=== PATIENT | female | born 1995 | race Caucasian/White ===

== ENCOUNTER 2020-02-26 13:52 | Emergency (ER) | payer OTHER, SELFPAY ==
[2020-02-26 14:09] VITALS: BP 145/70; PULSE 112; RESP 20; TEMP 37; O2SAT 96
--- NOTE | 2020-02-26 14:11 | ED.URI ---
HPI - URI/Sore Throat General Chief Complaint: Upper Respiratory Infection Stated Complaint: cold symptoms Source: patient and RN notes reviewed Mode of arrival: ambulatory Limitations: no limitations History of Present Illness MD elicited complaint: sore throat, rhinorrhea and nasal congestion Onset (ago): day(s) (1) Consistency: constant Severity: moderate Able to tolerate fluids by mouth: Yes Exacerbating factors: nothing Relieving factors: nothing Related Data Home Medications Medication Instructions Recorded Confirmed albuterol sulfate [ProAir HFA] 2 puff INHALATION QID PRN 02/26/20 02/26/20 Allergies Allergy/AdvReac Type Severity Reaction Status Date / Time No Known Allergies Allergy Unverified 02/26/20 14:14 Review of Systems Review of Systems: All systems reviewed & are unremarkable except as noted in HPI and below Constitutional: Constitutional: Denies chills and Denies fever(s) Eyes: Eyes: Reports no additional eye complaints ENT: Reports system reviewed and no additional complaints, except as documented Cardiovascular: Cardiovascular: Reports no additional cardiovascular complaints Respiratory: Respiratory: Reports no additional respiratory complaints Gastrointestinal: Gastrointestinal: Reports no additional gastrointestinal complaints Genitourinary: Genitourinary: Reports no additional female genitourinary complaints Musculoskeletal: Musculoskeletal: Reports no additional musculoskeletal complaints Integumentary/Breasts: Skin/Breast: Reports system reviewed and no additional complaints, except as docu Neurologic: Reports system reviewed and no additional complaints, except as documented Psychiatric: Psychiatric: Reports no additional psychiatric complaints Endocrine: Endocrine: Reports no additional endocrine complaints Hematologic/Lymphatic: Hematologic/Lymphatic: Reports no additional hematologic/lymphatic complaints Allergic/Immunologic: Allergic/Immunologic: Reports no additional allergic/immunologic complaints PMFSH Past Medical History Medical History (Updated 02/26/20 @ 14:52 by Ruiz Deshpande MD) Asthma Surgical History Surgical History (Updated 02/26/20 @ 14:17 by Ruiz Deshpande MD) No pertinent past surgical history Social History Social History Gender identity (if verbalized by the patient): Female Exam Const: General: healthy appearing, no acute distress and alert Nutritional Appearance: well nourished Orientation/consciousness: patient oriented x3 Other: female nurse in room during examination. HENMT: Head: normal to inspection Ears: external ears normal, TM's normal bilaterally and EAC's normal General nose exam: Normal external nose present and Normal nares present Face and sinus: normal facial exam Mouth: Yes Normal oral and palatal mucosa present and Yes lip normal Throat: uvula midline and posterior oropharynx abnormal erythema; no exudates Eyes: Conjunctivae: conjunctivae normal Pupils: Equal, round and reactive pupils present EOM: EOMs intact bilaterally Resp: Effort & Inspection: normal respiratory effort Auscultation: clear to auscultation bilaterally Cardio: Rate: regular rate Rhythm: regular rhythm GI: GI Palp: Yes Soft to palpation and No Tenderness to palpation present (GI) Auscultation: normal bowel sounds Back/Spine/Pelvis: Cervical Spine: cervical ROM normal Thoracic/Lumbar Spine: thoraco-lumbar ROM normal Skin: General skin exam: normal color Rashes: no rashes Neuro: General: patient oriented x3, moves all extremities and no focal motor deficits Speech: normal speech Gait exam (Neuro): Normal gait present Extrem: General: normal to inspection and no clubbing, cyanosis or edema Psych: Appearance: grossly normal and well kempt Mental Status: mental status grossly normal Affect: normal affect Attitude: cooperative Thought content: Yes Normal thought content present Course Vital Signs Vital signs: Vital Sig
--- NOTE | 2020-02-26 14:19 | PC.NURSE ---
accompanied Dr Deshpande on assessment [facility]
[2020-02-26 14:59] VITALS: PULSE 110; RESP 20; O2SAT 98
== END 2020-02-26 15:01 | disposition home or self-care (01) ==
PROVIDERS: Emergency Provider Emergency Medicine
DX: J02.0 Streptococcal pharyngitis (principal)
CPT/HCPCS: 87880; 99283

== ENCOUNTER 2020-04-04 12:27 | Outpatient (CLI) | payer OTHER, SELFPAY ==
--- NOTE | ~2020-04-04 | US_ITS ---
EXAMINATION: US pelvic complete w TV DATE: 04/04/2020 13:03 INDICATION: IUD Comparison:No prior studies for comparison. TECHNIQUE: Multiple transabdominal and endovaginal sonographic images of the pelvis performed. FINDINGS: The uterus measures 9.4 x 2.9 x 4.1 cm. The endometrial complex measures 3 mm. The right ovary measures 6.2 x 4.1 x 5.3 cm and the left ovary measures 2.8 x 1.8 x 1.7 cm. There is a right ovarian cyst measuring 5.6 x 4 x 5 cm. IUD present in the endometrium. There are small follic les in each ovary. There is no free fluid in the pelvis. There are no abnormal masses seen on either side. IMPRESSION: 1. 5.6 cm right ovarian cyst. 2: IUD in expected position. Reviewed, dictated and finalized at location A.
== END 2020-04-04 12:28 | disposition home or self-care (01) ==
LOC: CHSIMG 12:29
PROVIDERS: PCP Family Medicine; Visit Provider Nurse Practitioner
DX: Z30.431 Encounter for routine checking of intrauterine contraceptive device (principal)
CPT/HCPCS: 76830; 76856

== ENCOUNTER 2020-05-23 12:29 | Outpatient (CLI) | payer OTHER, SELFPAY ==
--- NOTE | ~2020-05-23 | US_ITS ---
EXAMINATION: US pelvic complete w TV DATE: 05/23/2020 13:00 INDICATION: Follow-up right ovarian cyst. Comparison:Ultrasound dated 04/04/2020 TECHNIQUE: Multiple transabdominal and endovaginal sonographic images of the pelvis performed. FINDINGS: The uterus measures 8.3 x 3.4 x 5 cm. There is an IUD in expected position. The endometrial complex measures 4 mm. The right ovary measures 2.7 x 1.9 x 2.1 cm and the left ovary measures 2.3 x 1.6 x 1.4 cm. There is a 1.5 cm right ovarian cyst. There is no free fluid in the pelvis. There are no abnormal masses seen on either side. IMPRESSION: 1. Right ovarian cyst measuring 1.5 cm. Reviewed, dictated and finalized at location A. AL MECHANIC
== END 2020-05-23 12:30 | disposition home or self-care (01) ==
LOC: CHSIMG 12:31
PROVIDERS: Visit Provider Obstetrics & Gynecology Gynecology
DX: N83.201 Unspecified ovarian cyst, right side (principal)
CPT/HCPCS: 76830; 76856

== ENCOUNTER 2020-07-30 19:05 | Emergency (ER) | payer OTHER, SELFPAY ==
--- NOTE | ~2020-07-30 | XR_ITS ---
EXAMINATION: XR chest 2V DATE: 07/30/2020 20:50 INDICATION: Intermittent midsternal chest pressure. Shortness of breath. TECHNIQUE: Frontal and lateral views of the chest were obtained. COMPARISON: None. FINDINGS: The chest demonstrates clear lungs without pneumonia, pleural effusion, or pneumothorax. Th e heart size is normal. IMPRESSION: 1. No acute cardiopulmonary disease. Reviewed, dictated and finalized at location A. ENT SUCCESS COACH
[2020-07-30 19:10] VITALS: BP 122/79; PULSE 75; RESP 20; TEMP 36.6; O2SAT 99
--- NOTE | 2020-07-30 19:31 | ED.CHESTPAIN ---
HPI - Chest Pain General Chief Complaint: Shortness of Breath/Dyspnea Stated Complaint: chest pains Time Seen by Provider: 07/30/20 19:31 Source: patient Mode of arrival: ambulatory Limitations: no limitations History of Present Illness HPI narrative: 25-year-old woman with history of asthma comes in today complaining of 2 days of intermittent chest pain which is substernal and lasts up to a few hours at a time. She states she has also had progressively worse shortness of breath and an intermittent sore throat. She denies cough, fever, vomiting, diarrhea, abdominal pain, syncope, and dysuria. 2 family members at home and had mild upper respiratory symptoms the past few days. She has had the flu vaccine this season. MD complaint: chest pain Pertinent past history: asthma Onset (ago): day(s) (2) Timing of current episode: episodic Pain location: substernal Pain radiation: none Severity: moderate Quality: tightness Relieving factors: nothing Exacerbating factors: nothing Associated symptoms: dyspnea Treatment prior to arrival: none Risk Factors Coronary artery disease risk factors: none Thoracic aortic dissection risk factors: none Related Data On Oral Contraceptives: No ( Mirena) Allergies Allergy/AdvReac Type Severity Reaction Status Date / Time No Known Allergies Allergy Verified 03/14/20 10:35 Review of Systems Constitutional: Constitutional: Denies chills, Denies fever(s) and Denies weakness Eyes: Eyes: Denies change in vision and Denies photophobia ENT: Denies dysphagia, Denies nasal congestion and Reports sore throat Cardiovascular: Cardiovascular: Reports chest pain and Denies radiating jaw, neck or arm pain Respiratory: Respiratory: Denies cough and Reports dyspnea Gastrointestinal: Gastrointestinal: Denies abdominal pain, Denies diarrhea, Denies nausea and Denies vomiting Genitourinary: Genitourinary: Denies nocturia and Denies dysuria Musculoskeletal: Musculoskeletal: Denies arthralgias and Denies joint swelling Integumentary/Breasts: Skin/Breast: Denies pruritus, Denies erythema and Denies rash Neurologic: Denies vertigo, Denies dizziness and Denies syncope Endocrine: Endocrine: Denies polydipsia and Denies polyuria Hematologic/Lymphatic: Hematologic/Lymphatic: Denies easy bleeding and Denies easy bruising Allergic/Immunologic: Allergic/Immunologic: Denies lip swelling and Denies throat swelling PMF Past Medical History Medical History Asthma Surgical History Surgical History No pertinent past surgical history Social History Social History Smoking status: Never smoker Second hand tobacco smoke exposure: Yes (spouse) Alcohol intake: never Substance use: never Substance use type: does not use Gender identity (if verbalized by the patient): Female Exam Const: General: healthy appearing, no acute distress and alert Orientation/consciousness: patient oriented x3 Limitations: no limitations HENMT: Head: normal to inspection Ears: external ears normal, TM's normal bilaterally and EAC's normal General nose exam: Normal nares present Face and sinus: normal facial exam Mouth: Yes moist mucous membranes Throat: posterior oropharynx normal Eyes: Conjunctivae: conjunctivae normal Pupils: Equal, round and reactive pupils present EOM: EOMs intact bilaterally Resp: Effort & Inspection: normal respiratory effort and not labored Auscultation: clear to auscultation bilaterally, no rales, no rhonchi and no wheezes Cardio: Rate: regular rate Rhythm: regular rhythm Heart sounds: no murmurs Skin: General skin exam: normal color, no jaundice and no pallor Rashes: no rashes Neuro: General: patient oriented x3, moves all extremities, No no focal motor deficits and No CN's II-XI intact bilaterally Speech: No normal s
[2020-07-30 19:48] VITALS: PULSE 85
[2020-07-30 20:05] LABS: Influenza Control Valid (Valid); SARS-CoV-2 Ag Negative (Negative)
--- NOTE | 2020-07-30 20:06 | ECG_ITS ---
Measurements Intervals [place] Rate: 74 P: 62 [place]: 140 QRS: 52 QRSD: 114 T: 32 QT: 391 QTc: 436 Interpretive Statements SINUS RHYTHM WITH SINUS ARRHYTHMIA INCOMPLETE RIGHT BUNDLE BRANCH BLOCK BORDERLINE ECG Electronically Signed On 07-31-2020 6:49:44 RELATIONSHIP COUNSELOR by Dillon Schreiber D.O.
[2020-07-30] MEDS: IPRATROPIUM 0.5 MG/ALBUTEROL SULFATE 2.5 MG AMPUL.NEB 3 ML INHALATION (20:14)
[2020-07-30 20:15] VITALS: PULSE 84; RESP 14; O2SAT 100
[2020-07-30 20:20] VITALS: PULSE 101; RESP 16; O2SAT 100
[2020-07-30] MEDS: predniSONE 20 MG TABLET 60 MG PO (21:13)
[2020-07-30 21:20] VITALS: BP 110/74; PULSE 82; RESP 20; TEMP 36.9; O2SAT 100
== END 2020-07-30 21:23 | disposition home or self-care (01) ==
PROVIDERS: Emergency Provider Emergency Medicine
DX: J45.901 Unspecified asthma with (acute) exacerbation (principal); R07.9 Chest pain, unspecified; Z20.822 Contact with and (suspected) exposure to COVID-19
CPT/HCPCS: 36415; 71046; 87426; 87804; 93005; 94640; 99283; 99284; C9803; J7512

== ENCOUNTER 2020-08-05 15:04 | Emergency (ER) | payer OTHER, SELFPAY ==
--- NOTE | ~2020-08-05 | XR_ITS ---
EXAMINATION: XR chest 2V DATE: 08/05/2020 16:56 INDICATION: Midsternal chest pain TECHNIQUE: PA and lateral views of the chest are obtained. COMPARISON: 07/30/2020 FINDINGS: The lungs are free of acute opacities. There is no pleural effusion or pneumothorax. The ca rdiomediastinal silhouette is normal. There is thoracolumbar levoscoliosis. IMPRESSION: 1. No acute cardiopulmonary abnormality. Reviewed, dictated and finalized at location A. ORT CONTROL OPERATOR
[2020-08-05 15:15] VITALS: BP 112/67; PULSE 68; RESP 20; TEMP 36.4; O2SAT 98
--- NOTE | 2020-08-05 15:38 | ED.CHESTPAIN ---
HPI - Chest Pain General Chief Complaint: Chest Pain Stated Complaint: chest pain Time Seen by Provider: 08/05/20 15:42 Source: patient Mode of arrival: ambulatory Limitations: no limitations History of Present Illness HPI narrative: 25-year-old woman with history of asthma comes in today complaining of sharp chest pain which has been present for the last day or so. She states that she thought she was having a panic attack. States the pain was constant, substernal, and not associated with any other symptoms such as shortness of breath, nausea, sweating, lightheadedness. She states that she has had a cough recently but has had no wheezing, sore throat, fever, or ageusia. She states her has had bronchitis recently. She has the Mirena for for control. MD complaint: chest pain Pertinent past history: asthma Onset (ago): day(s) (1-2) Prior episodes: No Onset: during rest Pain location: substernal Pain radiation: none Severity: moderate Quality: sharp Relieving factors: nothing Exacerbating factors: nothing Treatment prior to arrival: other (NSAID) Risk Factors Coronary artery disease risk factors: none Related Data On Oral Contraceptives: No Allergies Allergy/AdvReac Type Severity Reaction Status Date / Time No Known Allergies Allergy Verified 03/14/20 10:35 Review of Systems Constitutional: Constitutional: Denies body ache(s) and Denies chills Comments: No fever. Eyes: Eyes: Denies change in vision, Denies loss of vision and Denies photophobia ENT: Denies nasal congestion, Denies nasal discharge and Denies sore throat Cardiovascular: Cardiovascular: Reports as per HPI Respiratory: Respiratory: Denies chest congestion, Denies cough, Denies hemoptysis, Denies pain on inspiration, Denies dyspnea, Denies stridor and Denies wheezing Gastrointestinal: Gastrointestinal: Denies abdominal pain, Denies diarrhea, Denies nausea and Denies vomiting Musculoskeletal: Musculoskeletal: Denies back pain, Denies arthralgias and Denies joint swelling Comments: No calf pain or swelling. Integumentary/Breasts: Skin/Breast: Denies pruritus, Denies erythema and Denies rash Neurologic: Denies vertigo, Denies dizziness, Denies syncope and Reports headache(s) Psychiatric: Psychiatric: Reports anxiety Hematologic/Lymphatic: Hematologic/Lymphatic: Denies easy bleeding and Denies easy bruising Allergic/Immunologic: Allergic/Immunologic: Denies urticaria, Denies lip swelling and Denies throat swelling PMFSH Past Medical History Medical History Asthma Surgical History Surgical History No pertinent past surgical history Social History Social History Smoking status: Never smoker Second hand tobacco smoke exposure: Yes (spouse) Alcohol intake: never Substance use: never Substance use type: does not use Gender identity (if verbalized by the patient): Female Exam Const: General: cooperative, healthy appearing, well developed, alert, awake, Physically active and acute distress mild Nutritional Appearance: average body habitus Orientation/consciousness: patient oriented x3 Limitations: no limitations HENMT: Head: normal to inspection and atraumatic Ears: external ears normal, TM's normal bilaterally and EAC's normal Face and sinus: normal facial exam Mouth: Yes Normal oral and palatal mucosa present Throat: posterior oropharynx normal Eyes: Pupils: Equal, round and reactive pupils present EOM: EOMs intact bilaterally Resp: Effort & Inspection: normal respiratory effort, able to speak in complete sentences, not labored and no respiratory distress Auscultation: clear to auscultation bilaterally, no rales, no rhonchi and no wheezes Cardio: Rate: regular rate Rhythm: regular rhythm Heart sounds: no murmurs GI: Auscultation: normal bowel
--- NOTE | 2020-08-05 15:50 | ECG_ITS ---
Measurements Intervals [place] Rate: 66 P: 58 HI: 147 QRS: 68 QRSD: 97 T: 40 QT: 388 QTc: 406 Interpretive Statements SINUS RHYTHM WITH SINUS ARRHYTHMIA INCOMPLETE RIGHT BUNDLE BRANCH BLOCK BASELINE WANDER- I, II, III BORDERLINE ECG Electronically Signed On 08-05-2020 16:07:46 ELEMENTARY SCHOOL READING TEACHER by Dillon Schreiber D.O.
[2020-08-05] MEDS: MAG HYDROX/ALUMINUM HYD/SIMETH 30 ML, PHENobarb/HYOSCY/ATROPINE/SCOP 32.4 MG, LIDOCAINE... PO (16:03)
[2020-08-05 16:09] LABS: Basophils Absolute Auto 0.05 K/mm3 (0.00-0.10); Basophils Percent Auto 0.4 % (0.0-1.0); Eosinophils Absolute Auto 0.34 K/mm3 (0.02-0.50); Hematocrit 35.9 % (35.0-49.0); Hemoglobin 11.9 g/dL (12.0-15.0); Immature Granulocyte Absolute 0.03 K/mm3 (0.00-0.00); Immature Granulocyte Percent A 0.3 % (0.0-0.0); Lymphocytes Absolute Auto 4.83 K/mm3 (1.10-4.50); Mean Corpuscular HGB Conc 33.1 g/dL (32.0-36.0); Mean Corpuscular Hemoglobin 30.5 pg (27.0-31.0); Mean Corpuscular Volume 92.1 fL (78.0-102.0); Monocytes Absolute Auto 0.64 K/mm3 (0.10-0.90); Monocytes Percent Auto 5.6 % (2.0-11.0); Neutrophils Absolute Auto 5.6 K/mm3 (1.7-7.2); Neutrophils Percent Auto 48.7 % (50.0-70.0); Platelet Count Result 216 K/mm3 (150-420); Red Cell Distribution Width 11.9 % (11.6-14.4); White Blood Count 11.5 K/mm3 (4.8-10.8)
[2020-08-05 16:26] LABS: Alanine Aminotransferase 38 U/L (14-59); Albumin Level 3.7 g/dL (3.4-5.0); Alkaline Phosphatase 83 U/L (46-116); Anion Gap 9 mmol/L (8-16); Aspartate Amino Transferase 16 U/L (15-37); Bilirubin,Total 0.3 mg/dL (0.00-1.00); Blood Urea Nitrogen 18 mg/dL (7-18); Calcium 9.1 mg/dL (8.5-10.1); Carbon Dioxide 27 mmol/L (21-32); Chloride 103 mmol/L (98-108); D Dimer 0.44 mg/L (0.19-0.50); Estimated Glomerular Filt Rate > 60; Glucose 80 mg/dL (70-99); INR 1.1; Osmolality Calculated 288 mOsm/kg (285-295); Partial Thromboplastin Time 26.4 SEC (23.90-30.70); Potassium 3.2 mmol/L (3.5-5.1); Prothrombin Time 11.3 Seconds (9.50-12.10); Sodium 139 mmol/L (136-145); Total Protein 7.1 g/dL (6.4-8.2)
[2020-08-05 16:43] LABS: Troponin I < 4.0 ng/L (0.00-60.4)
[2020-08-05 17:05] LABS: Pregnancy On Board Control Positive; Urine Pregnancy Test Negative
[2020-08-05 17:34] LABS: Amphetamine Screen Urine Negative (Negative); Barbiturate Screen Urine Negative (Negative); Benzodiazepines Screen Urine Negative (Negative); Cannabinoid Screen Urine Negative (Negative); Cocaine Screen Urine Negative (Negative); Methadone Screen Urine Negative (Negative); Opiate Screen Urine Negative (Negative); Phencyclidine Screen Urine Negative (Negative)
[2020-08-05 17:38] VITALS: BP 111/66
[2020-08-06 00:55] LABS: Glucose Point of Care 81 (65-105)
== END 2020-08-05 17:40 | disposition home or self-care (01) ==
PROVIDERS: Emergency Provider Emergency Medicine; PCP Family Medicine
DX: R07.89 Other chest pain (principal)
CPT/HCPCS: 36415; 71046; 80053; 80307; 81025; 82948; 84484; 85025; 85380; 85610; 85730; 93005; 99284; A9270

== ENCOUNTER 2020-12-03 13:50 | Outpatient (CLI) | payer OTHER, SELFPAY ==
--- NOTE | ~2020-12-03 | XR_ITS ---
EXAMINATION: XR chest 2V DATE: 12/03/2020 14:16 INDICATION: Mid chest pain. TECHNIQUE: PA and lateral views of the chest were obtained. COMPARISON: Chest radiograph dated 08/05/2020 FINDINGS: The lungs remain clear with no focal airspace opacities, pulmonary edema, pleural effusion or pneumot horax. The cardiomediastinal silhouette is normal. 12 degree thoracolumbar levoscoliosis. Chronic min imal anterior wedging of a few mid and lower thoracic vertebral bodies. IMPRESSION: 1. No acute cardiopulmonary disease. Reviewed, dictated and finalized at location A.
--- NOTE | 2020-12-03 13:52 | ECG_ITS ---
Measurements Intervals [place] Rate: 75 P: 62 ID: 140 QRS: 72 QRSD: 110 T: 58 QT: 381 QTc: 426 Interpretive Statements SINUS RHYTHM INCOMPLETE RIGHT BUNDLE BRANCH BLOCK BASELINE ARTIFACT- II, III, AVF BORDERLINE ECG Electronically Signed On 12-03-2020 14:37:16 CDT by Dillon Schreiber D.O.
== END 2020-12-03 13:51 | disposition home or self-care (01) ==
PROVIDERS: PCP Family Medicine; Visit Provider Family Medicine
DX: R07.89 Other chest pain (principal)
CPT/HCPCS: 71046; 93005

== ENCOUNTER 2021-08-18 19:31 | Emergency (ER) | payer OTHER, SELFPAY ==
--- NOTE | ~2021-08-18 | XR_ITS ---
XR foot LT 2V DATE: 08/18/2021 20:04 INDICATION: Lateral ankle and foot pain after stepping into TECHNIQUE: AP and lateral views COMPARISON: None FINDINGS: No fracture or dislocation, periosteal reaction or bone destruction. Joint spaces are prese rved. No erosive changes. IMPRESSION: Negative Reviewed, dictated and finalized at location A. IMPRESSION: Negative
--- NOTE | ~2021-08-18 | XR_ITS ---
XR ankle LT min 3V DATE: 08/18/2021 20:04 INDICATION: Stepped into a hole today. Lateral ankle and foot pain. TECHNIQUE: 4 views COMPARISON: None FINDINGS: No fracture or dislocation of the ankle or disruption of the ankle mortise. No periosteal r eaction or bone destruction. IMPRESSION: Negative Reviewed, dictated and finalized at location A. IMPRESSION: Negative
[2021-08-18 19:50] VITALS: BP 119/85; PULSE 85; RESP 16; TEMP 36.5; O2SAT 100
--- NOTE | 2021-08-18 20:22 | ED.LOWEXIN ---
HPI - Extremity Injury (Lower) General Chief Complaint: Extremity Injury, Lower Stated Complaint: L foot injury Time Seen by Provider: 08/18/21 19:33 Source: patient and RN notes reviewed Mode of arrival: ambulatory Limitations: no limitations History of Present Illness complaint: ankle injury Onset (ago): day(s) (1) Type of Injury: inversion Place: street/outdoors Severity: moderate Severity scale (1-10): 6 Relieving factors: NSAID Exacerbating factors: weight bearing and movement Associated symptoms: snap/pop sensation Related Data Allergies Allergy/AdvReac Type Severity Reaction Status Date / Time No Known Allergies Allergy Verified 08/18/21 19:48 Review of Systems Review of Systems: All systems reviewed & are unremarkable except as noted in HPI and below PMFSH Past Medical History Medical History Abnormal electrocardiogram [ECG] [EKG] Ankle sprain Anxiety disorder, unspecified Asthma Hypokalemia Other chest pain Surgical History Surgical History No pertinent past surgical history Social History Social History Smoking status: Never smoker Second hand tobacco smoke exposure: Yes (spouse) Alcohol intake: never Substance use: never Substance use type: does not use Gender identity (if verbalized by the patient): Female Exam Const: General: no acute distress Nutritional Appearance: well nourished Orientation/consciousness: patient oriented x3 Limitations: no limitations HENMT: Head: normal to inspection Ears: external ears normal, TM's normal bilaterally and EAC's normal General nose exam: Normal external nose present and Normal nares present Face and sinus: normal facial exam and sinuses nontender Eyes: General: appearance normal, both eyes and all related structures Visual Valdez: normal visual valdez by confrontation Conjunctivae: conjunctivae normal Pupils: Equal, round and reactive pupils present EOM: EOMs intact bilaterally Neck: Neck: normal visual inspection Chest: Chest palpation & inspection: normal inspection of the chest Resp: Effort & Inspection: normal respiratory effort Auscultation: clear to auscultation bilaterally Cardio: Rate: regular rate Rhythm: regular rhythm GI: GI Palp: Yes Soft to palpation and No Tenderness to palpation present (GI) Auscultation: normal bowel sounds : General: Yes bladder normal to palpation and Yes no CVA tenderness Back/Spine/Pelvis: Back: no CVA tenderness Skin: General skin exam: normal color Neuro: General: patient oriented x3, moves all extremities, no meningeal signs, no focal motor deficits and CN's II-XI intact bilaterally Extrem: General: no pedal edema Other: minimally swollen lateral left ankle. no acute redness or deformity. Psych: Appearance: grossly normal and well kempt Mental Status: mental status grossly normal Affect: normal affect Attitude: cooperative Thought content: Yes Normal thought content present Course Course Emergency Course: Pt was stable in the ED. less painful Reevaluation(s) Date: 08/18/21 Time: 19:48 Vital Signs Vital signs: Vital Signs Temperature 36.5 C 08/18/21 19:50 Pulse Rate 85 08/18/21 19:50 Respiratory Rate 16 08/18/21 19:50 Blood Pressure 119/85 08/18/21 19:50 Pulse Oximetry 100 08/18/21 19:50 Temperature 36.5 C 08/18/21 19:50 Pulse Rate 85 08/18/21 20:39 Respiratory Rate 16 08/18/21 20:39 Blood Pressure 106/79 08/18/21 20:39 Pulse Oximetry 99 08/18/21 20:39 MDM - Extremity Injury (Lower) Differential Diagnosis Differential diagnosis: Likely ankle sprain and strain and ankle fracture Medical Records Attestation: I reviewed the patient's medical records. Imaging Data Radiologist's impression: see the report Critical Care Time Critical Care Time Critical Care Ti
[2021-08-18] MEDS: IBUPROFEN 400 MG TABLET 800 MG PO (20:27)
[2021-08-18 20:39] VITALS: BP 106/79; PULSE 85; RESP 16; O2SAT 99
== END 2021-08-18 20:41 | disposition home or self-care (01) ==
PROVIDERS: Emergency Provider Emergency Medicine; PCP Family Medicine
DX: S93.402A Sprain of unspecified ligament of left ankle, initial encounter (principal)
CPT/HCPCS: 29515; 73610; 73620; 99283; A9270; L4350

== ENCOUNTER 2021-11-03 09:09 | Outpatient (CLI) | payer OTHER, SELFPAY ==
[2021-11-03 10:15] LABS: SARS-CoV-2 RNA PCR Negative (Negative)
== END 2021-11-03 09:10 | disposition home or self-care (01) ==
PROVIDERS: PCP Family Medicine; Visit Provider Family Medicine
DX: J06.9 Acute upper respiratory infection, unspecified (principal); Z20.822 Contact with and (suspected) exposure to COVID-19
CPT/HCPCS: C9803; U0003; U0005

== ENCOUNTER 2022-01-14 09:22 | Outpatient (CLI) | payer OTHER, SELFPAY ==
--- NOTE | 2022-01-15 13:05 | WPDHOLTEREM ---
Holter/Event Monitor Holter/Event Monitor Date of procedure: 01/14/22 Holter/Event Procedure: 24 Hr Holter Monitor Indications: Chest pain Conclusion: 1. 24 hour holter monitor on 01/14/22. 2. Underlying rhythm is sinus rhythm. HR range 47-120 bpm; average HR 75 bpm. 3. There are 6 premature supraventricular complexes. No supraventricular tachycardia. 4. There is 1 premature ventricular complex. No ventricular tachycardia. 5. No sinoatrial or atrioventricular blocks. No significant pauses greater than 2 seconds. 6. Patient reports sharp pain and left sided pain which demonstrate sinus rhythm, HR range 72-87 bpm.
== END 2022-01-14 09:23 | disposition home or self-care (01) ==
LOC: CHSCARD 09:23
PROVIDERS: PCP Family Medicine; Visit Provider Nurse Practitioner Family
DX: R07.9 Chest pain, unspecified (principal)
CPT/HCPCS: 93225; 93226

== ENCOUNTER 2022-04-01 13:11 | Emergency (ER) | payer OTHER, SELFPAY ==
--- NOTE | ~2022-04-01 | XR_ITS ---
EXAMINATION: XR chest 2V 04/01/2022 14:11 INDICATION: Chest pain PROCEDURE: 2 view chest COMPARISON: 12/03/2020 FINDINGS: The lungs are clear. The cardiomediastinal silhouette is within normal limits. There are no pleural effusions. There is no pneumothorax suspected. IMPRESSION: 1: NO ACUTE CARDIOPULMONARY DISEASE. Reviewed, dictated and finalized at location B.
[2022-04-01 13:13] VITALS: BP 123/70; PULSE 95; RESP 20; TEMP 36.3; O2SAT 100
--- NOTE | 2022-04-01 13:52 | ECG_ITS ---
Measurements Intervals [place] Rate: 90 P: 55 [place]: 144 QRS: 38 QRSD: 101 T: 31 QT: 355 QTc: 436 Interpretive Statements SINUS RHYTHM BASELINE ARTIFACT RSR' IN V1 AND V2 BORDERLINE ECG COMPARED TO ECG 12/03/2020 14:07:48 NO SIGNIFICANT CHANGES Electronically Signed On 04-02-2022 16:32:11 CDT by Konrad Acevedo M.D.
[2022-04-01 14:06] LABS: Basophils Absolute Auto 0.04 K/mm3 (0.00-0.10); Basophils Percent Auto 0.5 % (0.0-1.0); Eosinophils Absolute Auto 0.41 K/mm3 (0.02-0.50); Eosinophils Percent Auto 5.4 % (1.0-6.0); Hematocrit 37.2 % (35.0-49.0); Hemoglobin 12.1 g/dL (12.0-15.0); Immature Granulocyte Absolute 0.02 K/mm3 (0.00-0.00); Immature Granulocyte Percent A 0.3 % (0.0-0.0); Lymphocytes Percent Auto 21.1 % (18.0-42.0); Mean Corpuscular HGB Conc 32.5 g/dL (32.0-36.0); Mean Corpuscular Hemoglobin 30.4 pg (27.0-31.0); Mean Corpuscular Volume 93.5 fL (78.0-102.0); Mean Platelet Volume 10.3 fl (9.2-11.8); Monocytes Absolute Auto 0.43 K/mm3 (0.10-0.90); Monocytes Percent Auto 5.7 % (2.0-11.0); Neutrophils Absolute Auto 5.1 K/mm3 (1.7-7.2); Platelet Count Result 201 K/mm3 (150-420); Red Blood Count 3.98 M/mm3 (4.20-5.40); Red Cell Distribution Width 11.5 % (11.6-14.4); White Blood Count 7.6 K/mm3 (4.8-10.8)
[2022-04-01 14:20] LABS: Partial Thromboplastin Time 29.6 SEC (23.90-30.70); Prothrombin Time 11.2 Seconds (9.50-12.10)
[2022-04-01 14:21] LABS: D Dimer 0.42 mg/L (0.19-0.50)
[2022-04-01 14:29] LABS: Alanine Aminotransferase 22 U/L (14-59); Albumin Level 3.8 g/dL (3.4-5.0); Alkaline Phosphatase 89 U/L (46-116); Anion Gap 4 mmol/L (8-16); Aspartate Amino Transferase 14 U/L (15-37); Bilirubin,Total 0.4 mg/dL (0.00-1.00); Blood Urea Nitrogen 11 mg/dL (7-18); Calcium 8.4 mg/dL (8.5-10.1); Carbon Dioxide 28 mmol/L (21-32); Chloride 106 mmol/L (98-108); Estimated CRCL calculation 73 ml/min; Estimated Glomerular Filt Rate > 60; Glucose 115 mg/dL (70-99); Osmolality Calculated 286 mOsm/kg (285-295); Potassium 3.9 mmol/L (3.5-5.1); Sodium 138 mmol/L (136-145); Total Protein 7.5 g/dL (6.4-8.2); Troponin I < 4.0 ng/L (0.00-60.4)
--- NOTE | 2022-04-01 14:34 | ED.CHESTPAIN ---
HPI - Chest Pain General Chief Complaint: Chest Pain Stated Complaint: Chest pain/cant hardly move/hurts to bend over SOB Time Seen by Provider: 04/01/22 13:16 Source: patient Mode of arrival: ambulatory Limitations: no limitations History of Present Illness HPI narrative: This is a 26-year-old female presents with some chest discomfort and shortness of breath that started earlier this morning has a history of anxiety depression, there is no radiation of her pain she rates her pain at about currently 2/10 it started about 7 this morning reproducible pain with a deep inspiration with no fever chills no cough or congestion. complaint: chest discomfort Onset (ago): hour(s) Timing of current episode: episodic Prior episodes: No Onset: during rest Pain location: other Pain radiation: none Severity: mild Quality: aching Relieving factors: nothing Exacerbating factors: nothing Related Data Home Medications Medication Instructions Recorded Confirmed pantoprazole 40 mg tablet,delayed 40 mg PO DAILY 11/03/21 04/01/22 release Allergies Allergy/AdvReac Type Severity Reaction Status Date / Time No Known Allergies Allergy Verified 01/19/22 08:07 Review of Systems Review of Systems: All systems reviewed & are unremarkable except as noted in HPI and below PMFSH Past Medical History Medical History Abnormal electrocardiogram [ECG] [EKG] Ankle sprain Anxiety disorder, unspecified Asthma Hypokalemia Other chest pain URI (upper respiratory infection) Surgical History Surgical History No pertinent past surgical history Social History Social History Smoking status: Never smoker Second hand tobacco smoke exposure: Yes (spouse) Alcohol intake: never Substance use: never Substance use type: does not use Gender identity (if verbalized by the patient): Female Exam Const: General: healthy appearing Nutritional Appearance: well nourished Limitations: no limitations HENMT: Head: normal to inspection Face/Nose/Sinus: Normal external nose present Face and sinus: normal facial exam Eyes: Conjunctivae: conjunctivae normal Pupils: Equal, round and reactive pupils present EOM: EOMs intact bilaterally Neck: Neck: normal visual inspection, no lymphadenopathy and no meningeal signs Chest: Chest palpation & inspection: normal inspection of the chest Resp: Effort & Inspection: normal respiratory effort Auscultation: clear to auscultation bilaterally Cardio: Rate: regular rate Rhythm: regular rhythm GI: GI Palp: Yes Soft to palpation : General: Yes bladder normal to palpation Urinary Catheter: Urinary Catheter: patent and draining Skin: General skin exam: normal color Rashes: no rashes Wounds: no wounds Neuro: General: patient oriented x3 Extrem: General: normal to inspection Psych: Mental Status: mental status grossly normal Affect: normal affect Course Course Emergency Course: Reassessment of patient symptoms have improved, patient had labs EKG and x-rays reviewed with no abnormal findings. Vital Signs Vital signs: Vital Signs Temperature 36.3 C L 04/01/22 13:13 Pulse Rate 95 04/01/22 13:13 Respiratory Rate 20 04/01/22 13:13 Blood Pressure 123/70 04/01/22 13:13 Pulse Oximetry 100 04/01/22 13:13 Oxygen Delivery Room Air 04/01/22 13:13 Temperature 36.3 C L 04/01/22 13:13 Pulse Rate 95 04/01/22 13:13 Respiratory Rate 20 04/01/22 13:13 Blood Pressure 123/70 04/01/22 13:13 Pulse Oximetry 100 04/01/22 13:13 Oxygen Delivery Room Air 04/01/22 13:13 MDM - Chest Pain Lab Data Result diagrams: 04/01/22 14:01 04/01/22 14:01 Labs: Lab Results 04/01/22 04/01/22 04/01/22 Range/Units 14:01 14:01 14:01 WBC 7.6 (4.8-10.8) K/mm3 RBC
[2022-04-01 14:39] VITALS: BP 105/68; PULSE 80; RESP 16; TEMP 36.7; O2SAT 100
[2022-04-01 14:56] VITALS: BP 104/67; PULSE 83; RESP 20; TEMP 36.9; O2SAT 100
== END 2022-04-01 14:59 | disposition home or self-care (01) ==
PROVIDERS: Emergency Provider Emergency Medicine; PCP Family Medicine
DX: R09.1 Pleurisy (principal)
CPT/HCPCS: 36415; 71046; 80053; 84484; 85025; 85380; 85610; 85730; 93005; 99284

== ENCOUNTER 2022-05-18 14:13 | Outpatient (CLI) | payer OTHER, SELFPAY ==
[2022-05-18 14:52] LABS: Strep Group A RT-PCR NOT DETECTED (Negative)
[2022-05-18 15:02] LABS: Influenza A QL RT-PCR Negative (Negative); Influenza B QL RT-PCR Negative (Negative); SARS-CoV-2 RNA PCR Negative (Negative)
== END 2022-05-18 14:14 | disposition home or self-care (01) ==
LOC: CHSLAB 14:14
PROVIDERS: PCP Family Medicine; Visit Provider Family Medicine
DX: J06.9 Acute upper respiratory infection, unspecified (principal); J02.9 Acute pharyngitis, unspecified; Z20.822 Contact with and (suspected) exposure to COVID-19
CPT/HCPCS: 87636; 87651

== ENCOUNTER 2023-12-05 12:32 | Emergency (ER) | payer OTHER, SELFPAY ==
--- NOTE | ~2023-12-05 | XR_ITS ---
XR chest 1V portable Ordering provider: Collin Andujar MD History: 28 years Female with . chest congestion, fever, nausea, SOB . Comparison: April 01, 2022 FINDINGS: MEDIASTINUM: The cardiac silhouette is not enlarged. LUNGS: No infiltrates, effusions or pneumothorax. OTHER: No free air under the diaphragm. IMPRESSION: No acute cardiopulmonary pathology. Reviewed, dictated and finalized at location A.
[2023-12-05 12:35] VITALS: BP 120/70; PULSE 84; RESP 16; TEMP 36.9; O2SAT 98
[2023-12-05 13:00] VITALS: BP 111/77; PULSE 88; RESP 16; O2SAT 99
[2023-12-05 13:30] VITALS: BP 109/74; PULSE 69; RESP 17; O2SAT 98
[2023-12-05 13:39] LABS: Influenza A QL RT-PCR Negative (Negative); Influenza B QL RT-PCR Negative (Negative); RSV RNA, RT-PCR Negative (Negative); SARS-CoV-2 RNA PCR Negative (Negative)
--- NOTE | 2023-12-05 13:48 | ED.GENADULT ---
HPI - General Adult General Chief complaint: Nausea/Vomiting/Diarrhea Stated complaint: vomiting Time Seen by Provider: 12/05/23 12:34 Source: patient Mode of arrival: ambulatory Limitations: no limitations History of Present Illness HPI narrative: This is a 28-year-old female presents with some headache congestion states that she has been having fevers recently was treated with antibiotics for upper respiratory tract infection currently there is no cough or congestion no shortness of breaths patient does have a history of asthma currently no fever chills currently no nausea vomiting no abdominal pain no diarrhea constipation no dysuria or hematuria. Onset (ago): day(s) Location: head Severity: mild Related Data Allergies Allergy/AdvReac Type Severity Reaction Status Date / Time No Known Allergies Allergy Verified 12/05/23 12:43 Review of Systems Review of Systems: All systems reviewed & are unremarkable except as noted in HPI and below PMFSH Past Medical History Medical History Abnormal electrocardiogram [ECG] [EKG] Ankle sprain Anxiety disorder, unspecified Asthma Hypokalemia Other chest pain URI (upper respiratory infection) Surgical History Surgical History No pertinent past surgical history Social History Social History Smoking status: Never smoker Second hand tobacco smoke exposure: Yes (spouse) Alcohol intake: never Substance use: never Substance use type: does not use Living arrangements: with family Occupation/Education: unemployed Gender identity (if verbalized by the patient): Female Exam Const: General: healthy appearing, no acute distress and alert Nutritional Appearance: well nourished Orientation/consciousness: patient oriented x3 Limitations: no limitations HENMT: Head: normal to inspection Eyes: Conjunctivae: conjunctivae normal Neck: Neck: normal visual inspection, no lymphadenopathy and no meningeal signs Chest: Chest palpation & inspection: normal inspection of the chest Resp: Effort & Inspection: normal respiratory effort Auscultation: clear to auscultation bilaterally Cardio: Rate: regular rate Rhythm: regular rhythm GI: Auscultation: normal bowel sounds Urinary Catheter: Urinary Catheter: patent and draining Back/Spine/Pelvis: Back: no CVA tenderness Course Course Emergency Course: Chest x-ray without any acute cardiopulmonary abnormalities, COVID RSV and influenza negative. Vital Signs Vital signs: Vital Signs Temperature 36.9 C 12/05/23 12:35 Pulse Rate 84 12/05/23 12:35 Respiratory Rate 16 12/05/23 12:35 Blood Pressure 120/70 12/05/23 12:35 Pulse Oximetry 98 12/05/23 12:35 Oxygen Delivery Room Air 12/05/23 12:35 Temperature 36.9 C 12/05/23 12:35 Pulse Rate 84 12/05/23 12:35 Respiratory Rate 16 12/05/23 12:35 Blood Pressure 120/70 12/05/23 12:35 Pulse Oximetry 98 12/05/23 12:35 Oxygen Delivery Room Air 12/05/23 12:35 Medical Decision Making Vital Signs Vital Signs: Vital Signs Temperature 36.9 C 12/05/23 12:35 Pulse Rate 84 12/05/23 12:35 Respiratory Rate 16 12/05/23 12:35 Blood Pressure 120/70 12/05/23 12:35 Pulse Oximetry 98 12/05/23 12:35 Oxygen Delivery Room Air 12/05/23 12:35 Temperature 36.9 C 12/05/23 12:35 Pulse Rate 84 12/05/23 12:35 Respiratory Rate 16 12/05/23 12:35 Blood Pressure 120/70 12/05/23 12:35 Pulse Oximetry 98 12/05/23 12:35 Oxygen Delivery Room Air 12/05/23 12:35 Lab Data Labs: Lab Results 12/05/23 Range/Units 12:50 Influenza A (RT-PCR) Negative (Negative) Influenza B (RT-PCR) Negative (Negative) RSV (RT-PCR) Negative (Negative) SARS-CoV-2 RNA (RT-PCR) Negative (Negative) Critical Care Time Critical Care T
[2023-12-05 13:57] VITALS: BP 110/82; PULSE 62; RESP 17; TEMP 36.9; O2SAT 99
== END 2023-12-05 13:57 | disposition home or self-care (01) ==
PROVIDERS: Emergency Provider Emergency Medicine; PCP Nurse Practitioner Family
DX: B34.9 Viral infection, unspecified (principal); Z20.822 Contact with and (suspected) exposure to COVID-19
CPT/HCPCS: 71045; 87637; 99283

== ENCOUNTER 2023-12-21 18:56 | Emergency (ER) | payer OTHER, SELFPAY ==
--- NOTE | ~2023-12-21 | XR_ITS ---
XR chest 1V portable Ordering provider: Bautista Deras MD History: 28 years Female with . pleuritic chest pain . Comparison: December 05 2023 FINDINGS: MEDIASTINUM: The cardiac silhouette is not enlarged. LUNGS: No infiltrates, effusions or pneumothorax. OTHER: No free air under the diaphragm. Mild levoscoliosis. IMPRESSION: No acute cardiopulmonary pathology. Reviewed, dictated and finalized at location A.
[2023-12-21 18:58] VITALS: BP 139/91; PULSE 100; RESP 18; TEMP 36.3; O2SAT 100
--- NOTE | 2023-12-21 19:12 | ED.ANXIETY ---
HPI - Anxiety General Chief Complaint: Anxiety Stated Complaint: throwing up, anxiety Time Seen by Provider: 12/21/23 19:04 Source: patient Mode of arrival: ambulatory Limitations: no limitations History of Present Illness HPI narrative: nonsmoker history of anxiety, bipolar, asthma presents to the ER 1 day history -- anterior chest pain which is made worse by deep breathing -- shortness of breath. -- nausea with multiple episodes of vomiting. no hematemesis or melena. Complains of epigastric pain. Patient is afebrile. Patient was prescribed Zithromax, prednisone for an upper respiratory tract infection on 12/05/2023. Patient has had multiple prior visits for chest pain, shortness of breath and anxiety. Patient had a Holter monitor which was unremarkable. MD complaint: anxiety Onset (ago): day(s) ( One day) Symptoms: dyspnea and chest pain Quality: constant History of similar episodes: Yes Provoking factors: none known Relieving factors: nothing Associated symptoms: nausea/vomiting Related Data Allergies Allergy/AdvReac Type Severity Reaction Status Date / Time No Known Allergies Allergy Verified 12/21/23 19:09 Review of Systems Review of Systems: All systems reviewed & are unremarkable except as noted in HPI and below Constitutional: Constitutional: Reports as per HPI and Reports no additional constitutional complaints Eyes: Eyes: Reports as per HPI and Reports no additional eye complaints ENT: Reports system reviewed and no additional complaints, except as documented and Reports as per HPI Cardiovascular: Cardiovascular: Reports as per HPI and Reports no additional cardiovascular complaints Respiratory: Respiratory: Reports as per HPI, Reports no additional respiratory complaints and Reports dyspnea Gastrointestinal: Gastrointestinal: Reports as per HPI, Reports no additional gastrointestinal complaints, Reports abdominal pain, Reports nausea and Reports vomiting Genitourinary: Genitourinary: Reports no additional female genitourinary complaints and Reports as per HPI Musculoskeletal: Musculoskeletal: Reports no additional musculoskeletal complaints and Reports as per HPI Integumentary/Breasts: Skin/Breast: Reports system reviewed and no additional complaints, except as docu and Reports as per HPI Neurologic: Reports system reviewed and no additional complaints, except as documented and Reports as per HPI Psychiatric: Psychiatric: Reports no additional psychiatric complaints, Reports as per HPI and Reports anxiety Endocrine: Endocrine: Reports no additional endocrine complaints and Reports as per HPI Hematologic/Lymphatic: Hematologic/Lymphatic: Reports no additional hematologic/lymphatic complaints and Reports as per HPI Allergic/Immunologic: Allergic/Immunologic: Reports no additional allergic/immunologic complaints and Reports as per HPI [facility] Past Medical History Medical History Abnormal electrocardiogram [ECG] [EKG] Ankle sprain Anxiety disorder, unspecified Asthma Hypokalemia Other chest pain URI (upper respiratory infection) Surgical History Surgical History No pertinent past surgical history Social History Social History Smoking status: Never smoker Second hand tobacco smoke exposure: Yes (spouse) Alcohol intake: never Substance use: never Substance use type: does not use Living arrangements: with family Occupation/Education: unemployed Gender identity (if verbalized by the patient): Female Exam Narrative: blood pressure of 139/91. Oxygen saturation of 100% on room air with a resp Const: General: healthy appearing and no acute distress Orientation/consciousness: patient oriented x3 Limitations: no limitations HENMT: Head: normal to inspection Ears: external ears normal Face/Nose/Sinus
--- NOTE | 2023-12-21 19:22 | ECG_ITS ---
Test Date: 2023-12-21 19:30:12 Measurements Intervals Ida Rate: 86 P: 50 HI: 144 QRS: 19 QRSD: 97 T: 21 QT: 358 QTc: 429 Interpretive Statements SINUS RHYTHM INCOMPLETE RIGHT BUNDLE BRANCH BLOCK BASELINE ARTIFACT- I, III, AVL BORDERLINE ECG No previous ECG available for comparison Electronically Signed On 12-22-2023 06:28:39 CDT by Dillon Schreiber D.O.
--- NOTE | 2023-12-21 19:29 | PC.NURSE ---
PATIENT RESTING QUIETLY ON STRETCHER WITHOUT DISTRESS, NEEDLE PROCESS FELT GOODS SUPERVISOR AT BEDSIDE FOR EKG. PHLEBOTOMY FOR BLOOD DRAW. CALL LIGHT WITHIN REACH. PATIENT FAMILY AT BEDSIDE.
--- NOTE | 2023-12-21 19:34 | PC.NURSE ---
pt escorted to bathroom for a urine specimen
[2023-12-21 19:36] LABS: Basophils Absolute Auto 0.05 K/mm3 (0.00-0.10); Basophils Percent Auto 0.5 % (0.0-1.0); Eosinophils Absolute Auto 0.53 K/mm3 (0.02-0.50); Eosinophils Percent Auto 5.2 % (1.0-6.0); Hematocrit 37.1 % (35.0-49.0); Hemoglobin 12.3 g/dL (12.0-15.0); Immature Granulocyte Absolute 0.03 K/mm3 (0.00-0.00); Immature Granulocyte Percent A 0.3 % (0.0-0.0); Lymphocytes Absolute Auto 2.29 K/mm3 (1.10-4.50); Lymphocytes Percent Auto 22.4 % (18.0-42.0); Mean Corpuscular HGB Conc 33.2 g/dL (32-36); Mean Corpuscular Hemoglobin 30.4 pg (27.0-31.0); Mean Corpuscular Volume 91.6 fL (78.0-102.0); Mean Platelet Volume 9.6 fl (9.2-11.8); Monocytes Absolute Auto 0.59 K/mm3 (0.10-0.90); Monocytes Percent Auto 5.8 % (2.0-11.0); Neutrophils Absolute Auto 6.72 K/mm3 (1.70-7.20); Neutrophils Percent Auto 65.8 % (50.0-70.0); Platelet Count Result 222 K/mm3 (150-420); Red Blood Count 4.05 M/mm3 (4.20-5.40); Red Cell Distribution Width 11.4 % (11.6-14.4); White Blood Count 10.2 K/mm3 (4.8-10.8)
[2023-12-21 19:46] LABS: Pregnancy On Board Control Positive; Urine Pregnancy Test Negative
[2023-12-21 20:04] LABS: Alanine Aminotransferase 33 U/L (14-59); Albumin Level 3.6 g/dL (3.4-5.0); Alkaline Phosphatase 92 U/L (46-116); Anion Gap 7 mmol/L (4-12); Aspartate Amino Transferase 18 U/L (15-37); Bilirubin,Total 0.3 mg/dL (0.00-1.00); Blood Urea Nitrogen 13 mg/dL (7-18); Calcium 8.8 mg/dL (8.5-10.1); Carbon Dioxide 28 mmol/L (21-32); Chloride 104 mmol/L (98-108); Estimated CRCL calculation 74 ml/min; Estimated Glomerular Filt Rate > 60; Glucose 105 mg/dL (70-99); Lipase 35 U/L (16-77); Osmolality Calculated 288 mOsm/kg (285-295); Sodium 139 mmol/L (136-145); Total Protein 7.1 g/dL (6.4-8.2); Troponin I < 4.0 ng/L (0.00-60.4)
--- NOTE | 2023-12-21 20:10 | PC.NURSE ---
PATIENT UPDATE PROVIDED BY DR COLLIER AT THIS TIME.
--- NOTE | 2023-12-21 20:28 | PC.NURSE ---
DR COLLIER AT BEDSIDE FOR FURTHER UPDATE AND PLAN OF CARE. MOTHER AT BEDSIDE.
[2023-12-21 20:34] VITALS: BP 107/71; PULSE 82; RESP 18; TEMP 36.2; O2SAT 100
== END 2023-12-21 20:35 | disposition home or self-care (01) ==
PROVIDERS: Emergency Provider Internal Medicine Critical Care Medicine; PCP Nurse Practitioner Family
DX: F41.9 Anxiety disorder, unspecified (principal); R07.89 Other chest pain
CPT/HCPCS: 36415; 71045; 80053; 81025; 83605; 83690; 84484; 85025; 93005; 99284

== ENCOUNTER 2023-12-27 06:57 | Outpatient (CLI) | payer OTHER, SELFPAY ==
--- NOTE | ~2023-12-27 | US_ITS ---
US abdomen complete EXAMINATION: US Abdomen Complete INDICATION: Generalized abdominal pain PROCEDURE: Realtime High Resolution abdomen ultrasound. COMPARISON: No prior studies for comparison FINDINGS: Gallbladder within normal limits. No gallstones, pericholecystic fluid, gallbladder wall t hickening or biliary dilatation. Common bile duct measures 3 mm. Liver echotexture within normal limits without focal mass. Pancreas within normal limits. Pancreati c tail is obscured by bowel gas. Spleen is unremarkeable. Renal echotexture is within normal limits bilaterally without hydronephrosis, contour deforming mass or renal stone. Right kidney measures 10.1 cm. Left kidney measures 10.3 cm. Visualized aspects of the aorta and IVC are within normal limits. Portal vein is patent. No sonograph ic Chowdhury's sign indicated by the technologist. IMPRESSION: 1: Normal abdominal ultrasound. Reviewed, dictated and finalized at location B.
== END 2023-12-27 06:58 | disposition home or self-care (01) ==
LOC: CHSIMG 06:59
PROVIDERS: PCP Nurse Practitioner Family; Visit Provider Nurse Practitioner Family
DX: R11.2 Nausea with vomiting, unspecified (principal)
CPT/HCPCS: 76700

== ENCOUNTER 2024-07-09 13:44 | Outpatient (CLI) | payer OTHER, SELFPAY ==
[2024-07-09 14:30] LABS: Strep Group A RT-PCR NOT DETECTED (Negative)
[2024-07-09 14:36] LABS: SARS-CoV-2 RNA PCR Negative (Negative)
[2024-07-09 14:37] LABS: Influenza A QL RT-PCR Positive (Negative); Influenza B QL RT-PCR Negative (Negative); RSV RNA, RT-PCR Negative (Negative)
--- OUTSIDE RECORDS SUMMARY | 2024-07-09 14:39 | XMS_ITS | Clinical Summary ---
Author Organization [facility] uis Address [address] [place] [address] Phone Care Team Providers Care Photographer Scientific Name Role Phone Fannie Bradshaw MD Primary Care Provider [phone] Allergies No known active allergies Medications ergocalciferol (VITAMIN D2) 50,000 unit capsule TAKE ONE CAPSULE BY MOUTH ONCE A WEEK WITH A LARGE MEAL. 1 09/14/2018 Active 25/iron fum/folic/dha (-1 ORAL) Take by mouth daily. Active iron,carb/vit C/vit B12/folic (IRON 100 PLUS ORAL) Take by mouth daily. 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 Gender Identity Not on file Sexual Orientation Not on file Last Filed Vital Signs Vital Sign Reading Time Taken Comments Blood Pressure 100/79 09/19/2018 2:12 PM CDT Pulse 98 09/19/2018 2:12 PM CDT Temperature 36.8 ??C (98.2 ??F) 09/19/2018 2:12 PM CD T Respiratory Rate - - Oxygen Saturation 98% 09/19/2018 2:12 PM CDT Inhaled Oxygen Concentration - - Weight 68.2 kg (150 lb 4.8 oz) 09/19/2018 2:12 P M CDT Height 154.9 cm (5' 1 ) 09/19/2018 2:12 PM CDT Body Mass Index 28.4 09/19/2018 2:12 PM CDT Plan of Treatment Health Maintenance Due Date Last Done Comments DTAP/TDAP/TD VACCINES (1 - Tdap) 2016 HEPATITIS B VACCINES (1 of 3 - 19+ 3-dose series) 2016 CERVICAL CANCER SCREENING 2018 INFLUENZA VACCINE (#1) 2024 RSV VACCINE (60+ or ) (1 - 1-dose 75+ series) 2072 HPV VACCINES Aged Out No longer eligi ble based on patient's age to complete this topic Insurance [facility] MEDICAID Care Teams Photographer Scientific Relationship Specialty Start Date End Date Fannie Bradshaw MD PCP - General Obstetrics and Gynecology 09/19/18
== END 2024-07-09 13:45 | disposition home or self-care (01) ==
LOC: CHSLAB 13:45
PROVIDERS: PCP Nurse Practitioner Family; Visit Provider Nurse Practitioner Family
DX: R50.9 Fever, unspecified (principal); J02.9 Acute pharyngitis, unspecified
CPT/HCPCS: 87637; 87651

== ENCOUNTER 2024-08-08 13:14 | Outpatient (CLI) | payer OTHER, SELFPAY ==
--- NOTE | ~2024-08-08 | US_ITS ---
US pelvic complete Ordering provider: Brenda Barakat MD History: . left sided pelvic pain . Comparison: None. Technique: Transabdominal and endovaginal ultrasound of the pelvis (Doppler ultrasound interrogation techniques used as needed for this exam.) FINDINGS: CERVIX: Normal. UTERUS: Measures 11.1x 5.3x 3 cm in length which is within normal limits and is anteverted. No myome trial masses. ENDOMETRIUM: Normal in thickness measuring 6.2 mm. IUD is seen in the endometrial cavity. No endometr ial masses, cysts or fluid. CUL DE SAC: No free fluid. RIGHT OVARY: Normal in size measuring 4.1x 3x 1.6 cm. Normal echotexture. Doppler vascular flow prese nt. Cyst is seen measuring 1.5 x 2.2 x 2.2 cm. LEFT OVARY: Normal in size measuring 2.8x 3.1x 1.6 cm. Normal echotexture. Doppler vascular flow pres ent. ADNEXA: Normal. No mass. IMPRESSION: Simple Right ovarian cyst. Otherwise, normal pelvic ultrasound. Reviewed, dictated and finalized at location A. [employer]
--- OUTSIDE RECORDS SUMMARY | 2024-08-08 14:37 | XMS_ITS | Clinical Summary ---
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
== END 2024-08-08 13:15 | disposition home or self-care (01) ==
PROVIDERS: PCP Nurse Practitioner Family; Visit Provider Obstetrics & Gynecology Gynecology
DX: R10.2 Pelvic and perineal pain (principal); N93.8 Other specified abnormal uterine and vaginal bleeding; N83.201 Unspecified ovarian cyst, right side
CPT/HCPCS: 76856

== ENCOUNTER 2024-09-20 08:21 | Outpatient (CLI) | payer OTHER, SELFPAY ==
--- NOTE | ~2024-09-20 | US_ITS ---
EXAM: PELVIC ULTRASOUND HISTORY: RT OVARIAN CYST COMPARISON: 08/08/2024 which demonstrated a 22 mm simple cyst within the right ovary FINDINGS: UTERUS: 8.8 x 5.8 x 3.4 cm. Intrauterine device is present. The endometrial complex measures 5 mm. RIGHT OVARY: The right ovary is unremarkable in echogenicity and size measuring 1.6 x 2.2 x 1.9 cm. Dopplerable flow is identified. LEFT OVARY: The left ovary is unremarkable in echogenicity and size measuring 3.3 x 1.8 x 1.7 cm Dopplerable flow is identified. No free fluid is identified within the pelvis. IMPRESSION: Unremarkable sonographic evaluation of the pelvis, as detailed above. Reviewed, dictated and finalized at location A.
--- OUTSIDE RECORDS SUMMARY | 2024-09-20 08:33 | XMS_ITS | Clinical Summary ---
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
== END 2024-09-20 08:22 | disposition home or self-care (01) ==
LOC: CHSIMG 08:22
PROVIDERS: PCP Nurse Practitioner Family; Visit Provider Obstetrics & Gynecology Gynecology
DX: N83.201 Unspecified ovarian cyst, right side (principal)
CPT/HCPCS: 76856